=== PATIENT | female | born 1990 | race African-American/Black ===

== ENCOUNTER 2016-03-07 16:12 | Emergency (ER) | payer OTHER ==
[2016-03-07 18:28] LABS: MEAN CORPUSCULAR HEMOGLOBIN 28.2 pg (27.0-33.0); MEAN CORPUSCULAR HGB CONC 33.1 g/dl (32.0-36.5); MEAN CORPUSCULAR VOLUME 85.1 fl (80.0-96.0); RED CELL DISTRIBUTION WIDTH 12.8 % (11.5-14.5); WHITE BLOOD COUNT 12.8 K/mm3 (4.0-10.0)
[2016-03-07 18:37] LABS: INR 0.93
[2016-03-07 18:49] LABS: ANION GAP 9 MEQ/L (8-16); BLOOD UREA NITROGEN 11 MG/DL (7-18); CALCIUM LEVEL 9.4 MG/DL (8.5-10.1); CARBON DIOXIDE LEVEL 24 MEQ/L (21-32); CHLORIDE LEVEL 106 MEQ/L (98-107); GLOMERULAR FILTRATION RATE > 60.0 (>60); GLUCOSE, FASTING 91 MG/DL (70-105); POTASSIUM SERUM 3.7 MEQ/L (3.5-5.1); SODIUM LEVEL 139 MEQ/L (136-145)
[2016-03-07 18:50] LABS: CONTROL LINE HCG INT CTR LINE PRESENT
--- NOTE | 2016-03-07 20:00 | REPUSA ---
HISTORY: Vaginal bleeding for 3 weeks. TECHNIQUE: Realtime sonographic images were obtained in multiple projections. Transabdominal and tr ansvaginal approach is utilized. FINDINGS: The uterus is anteverted measuring 10.46 x 6.06 x 8.6 cm. Multiple fibroids are seen measuring up to 6 cm. The endometrial echo pattern is WNL, 20.5mm. There is a hypoechoic area seen in the endomet rium canal measuring 1.7 x 1.5 cm which may represent submucosal fibroid versus polyp There is no evidence of free fluid within the pelvic cul-de-sac. The right ovary measures 2.74 x 1.95 x 1.96 cm and the left ovary was not seen. There is no evidence for abnormal vascularity. IMPRESSION: Markedly enlarged fibroid uterus. There is a hypoechoic area seen in the endometrium canal measuring 1.7 x 1.5 cm which may represent s ubmucosal fibroid versus polyp. Consider correlation with Pap smear or endometrial biopsy
[2016-03-07 20:18] LABS: HCG, SERUM QUANTITATIVE 5391 MIU/ML
--- NOTE | 2016-03-07 21:08 | EDDOCDS ---
Physician Documentation [facility] Name: Tuyet Oliver Age: 25 yrs Sex: Female : 1990 Arrival Date: 03/07/2016 Time: 16:12 Bed TR8 Private MD: [place] [facility] [place]: 03/07/16 20:52 Discharged to Home/Self Care. Impression: related conditions, unspecified, Threatened . - Condition is Stable. - Discharge Instructions: Threatened Miscarriage, Pelvic Rest. - Prescriptions for Zofran 4 mg Oral Tablet - take 1 tablet by ORAL route 4 times per day As needed; 10 tablet. - Medication Reconciliation, Local Pharmacy Hours form. - Follow up: Lisa Richardson, OB; When: 2 - 3 days; Reason: Recheck today's complaints, Continuance of care. - Problem is an ongoing problem. - Symptoms are unchanged. - Notes: repeat hcg in 2 days Historical: - Allergies: no known allergies; - Home Meds: 1. BCP's daily (Last dose: 03/06/2016) 2. trazodone 50 mg oral tab 1 tab night (Last dose: 03/06/2016 22:00) 3. Effexor XR 150 mg Oral cp24 1 cap once daily (Last dose: 03/06/2016 08:00) 4. ibuprofen 400 mg Oral tab 1 tab (Last dose: 03/07/2016 15:00) - PMHx: Depression; - PSHx: none; - Social history: Smoking status: Patient states was never smoker of tobacco. Patient/guardian denies using alcohol, street drugs, No barriers to communication noted, The patient speaks fluent German, Speaks appropriately for age. - Family history: Not pertinent. - : The pt / caregiver states he / she is not on anticoagulants. Home medication list is obtained from the patient. - Exposure Risk Screening:: None identified. 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 3 in. (160.02 cm); Pain 9/10; 20:57 BP 115 / 70 RA Sitting (auto/reg); Pulse 106; Resp 18; Temp 99.0(O); Pulse Ox 98% on rs6 R/A; Pain 7/10; 16:14 Body Mass Index 29.23 (74.84 kg, 160.02 cm) cmb MDM: 18:01 Financial registration complete. gjb 18:02 [facility] Payment Agreement was scanned into [employer] and attached to record. gjb 18:11 CBC Ordered. EDMS 18:11 BMP Ordered. EDMS 18:11 PT/INR Ordered. EDMS 18:11 HCG,Serum Qualitative Ordered. EDMS 18:23 -US Pelvic Non-Ob Complete Ordered. EDMS 18:24 DUPLEX SCAN LIMITED (DOPPLER)+US Ordered. EDMS 18:29 Transvaginal NON- US Ordered. EDMS 19:46 HCG, SERUM QUANTITATIVE Ordered. EDMS 19:48 CBC Reviewed. ke 19:48 HCG,Serum Qualitative Reviewed. ke 19:48 BMP Reviewed. ke 19:48 PT/INR Reviewed. ke 19:54 HCG, SERUM QUANTITATIVE Reviewed. ke 20:19 HCG,Serum Qualitative Reviewed. ke 20:19 BMP Reviewed. ke 20:19 HCG, SERUM QUANTITATIVE Reviewed. ke 20:43 Type & Screen Ordered. EDMS Signatures: Dispatcher [employer] EDMS Clarence Reyes, FIELD CANE SCALER Pilar SnowRN RN Batsheva Bryant RN RN Yolette Muñoz The chart was reviewed and I authenticate all verbal orders and agree with the evaluation and treatment provided.Corrections: (The following items were deleted from the chart) 19:46 19:40 HCG, SERUM QUANTITATIVE+LAB ordered. EDMS EDMS Attachments: 18:02 [facility] Payment Agreement gjb MTDD
--- NOTE | 2016-03-07 21:08 | EDDOCDS ---
Nurse's Notes [facility] Name: Tuyet Oliver Age: 25 yrs Sex: Female : 1990 Arrival Date: 03/07/2016 Time: 16:12 Bed TR8 Private MD: FRANCES Caballero Diagnosis: related conditions, unspecified;Threatened Presentation: 03/07 16:40 Presenting complaint: Patient states: bleeding and clotting x10 hours. Lower abd pain. ttb Pt concerned because "clots are the size of my fist". Denies dizziness, lightheadedness, n/v/d. Denies . Currently under care of PCP for ongoing vag bleeding x3 weeks. PCP started pt on BCP's Saturday. Risk factors: The patient reports no loss of conciousness prior to arrival. This patient has not had a hysterectomy. This patient has not begun menopause. Adult Sepsis Screening: The patient does not have new or worsening altered mentation. Patient's respiratory rate is less than 22. Systolic blood pressure is greater than 100. Patient has a qSOFA score of 0- Negative Sepsis Screen. Suicide/Homicide risk assessment- the patient denies having any suicidal and/or homicidal ideations and does not present with any other emotional, behavioral or mental health complaints. Status: The patient is a dependent. Transition of care: patient was not received from another setting of care. 16:40 Acuity: WILD Level 3 ttb 16:40 Method Of Arrival: Walkin/Carried/Asstd ttb Triage Assessment: 16:43 General: Appears in no apparent distress, well nourished, well groomed, Behavior is ttb appropriate for age, cooperative, pleasant. Pain: Location: pelvic/lower abd 9/10 Quality of pain is described as sharp. HIV screening NA for this visit Offered previously. Neurological: Level of Consciousness is awake, alert. Cardiovascular: Chest pain is denied. Respiratory: No deficits noted. Airway is patent Respiratory effort is even, Respiratory pattern is regular, symmetrical, Denies cough, shortness of breath. GI: Denies nausea, vomiting, pain. : Reports pain in suprapubic area vaginal bleeding that is bright red with clots heavy flow Denies burning with urination, urinary frequency, urgency. Derm: Skin is normal. 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 BCP's daily (Last dose: 03/06/2016) 2. trazodone 50 mg oral tab 1 tab night (Last dose: 03/06/2016 22:00) 3. Effexor XR 150 mg Oral cp24 1 cap once daily (Last dose: 03/06/2016 08:00) 4. ibuprofen 400 mg Oral tab 1 tab (Last dose: 03/07/2016 15:00) - PMHx: Depression; - PSHx: none; - Social history: Smoking status: Patient states was never smoker of tobacco. Patient/guardian denies using alcohol, street drugs, No barriers to communication noted, The patient speaks fluent Sierra Leonean, Speaks appropriately for age. - Family history: Not pertinent. - : The pt / caregiver states he / she is not on anticoagulants. Home medication list is obtained from the patient. - Exposure Risk Screening:: None identified. Screenin:05 Screening information is obtained from the patient. Fall risk: No risks identified. [facility] Assistance ADL's: requires no assistance with activities of daily living. Abuse/DV Screen: The patient / caregiver reports he/she is: not in a situation that causes fear, pain or injury. Nutritional screening: No deficits noted. Advance Directives: There is no active DNR order. home support is adequate. Assessment: 21:05 General: Appears in no apparent distress, comfortable, Behavior is appropriate for age, [facility] cooperative, first contact with patient to review discharge instructions, patient denies new problems or complaints, encouraged and answered questions, declines offer of further assistance with discharge. Vital Signs: 16:14 BP 117 / 73; Pulse 112; Resp 16; Temp 99.1(O); Pulse Ox 98% ; Weight 74.84 kg; Height 5 cmb ft. 3 in. (160.02 cm); Pain 9/10; 20:57 BP 115 / 70 RA Sitting (auto/reg); Pulse 106; Resp 18; Temp 99.0(O); Pulse Ox 98% on rs6 R/A; Pain 7/10; 16:14 Body Mass Index 29.23 (74.84 kg, 160.02 cm) cmb Vitals: 16:14 Log In Time: March 07, 2016 at 16:12. b ED Course: 16:13 Patient visited by Kenya Vasquez. cmb 16:13 Patient moved to Waiting cmb 16:14 Ada [facility] [place] Private Physician. cmb 16:15 Patient moved to Pre RCE cmb 16:42 Triage Initiated ttb 16:45 Patient visited by Batsheva Oleary RN. ttb 17:26 Patient moved to Triage 3 mlb1 17:45 [facility]. ke 17:45 Patient visited by Clarence Reyes FNP. ke 17:45 Patient visited by Clarence Reyes FNP. ke 18:02 [facility] Payment Agreement was scanned into [employer] and attached to record. gjb 18:14 Patient visited by Clarence Reyes FNP. ke 18:16 HCG,Serum Qualitative Sent. rs6 18:16 PT/INR Sent. rs6 18:16 BMP Sent. rs6 18:16 CBC Sent. rs6 18:18 Patient moved to TR3 rs6 18:59 Patient visited by Clarence Reyes FNP. ke 19:28 Patient visited by Clarence Reyes FNP. ke 19:50 Patient visited by Clarence Reyes FNP. ke 20:18 Patient visited by Clarence Reyes FNP. ke 20:25 Patient moved to PD2 / 27 rs6 20:25 -US Pelvic Non-Ob Complete Returned. EDMS 20:45 Patient visited by Clarence Reyes FNP. ke 20:51 [place], OB is Referral Physician. ke 20:51 Type & Screen Sent. rs6 20:58 Patient visited by Marisabel Dee PCA. rs6 20:59 Patient moved to TR8 rs6 21:05 The patient / caregiver is instructed regarding the plan of care and ED course. [facility] 21:05 No IV's were initiated during this patient's visit. No procedures done that require [facility] assistance. Order Results: Lab Order: CBC; SPEC'M 03/07/16 18:15 Test: WHITE BLOOD COUNT; Value: 12.8; Range: 4.0-10.0; Abnormal: Above high normal; Units: K/mm3; Status: F Test: RED BLOOD COUNT; Value: 3.86; Range: 4.00-5.40; Abnormal: Below low normal; Units: M/mm3; Status: F Test: HEMOGLOBIN; Value: 10.9; Range: 12.0-16.0; Abnormal: Below low normal; Units: g/dl; Status: F Test: HEMATOCRIT; Value: 32.9; Range: 36.0-47.0; Abnormal: Below low normal; Units: %; Status: F Test: MEAN CORPUSCULAR VOLUME; Value: 85.1; Range: 80.0-96.0; Units: fl; Status: F Test: MEAN CORPUSCULAR HEMOGLOBIN; Value: 28.2; Range: 27.0-33.0; Units: pg; Status: F Test: MEAN CORPUSCULAR HGB CONC; Value: 33.1; Range: 32.0-36.5; Units: g/dl; Status: F Test: RED CELL DISTRIBUTION WIDTH; Value: 12.8; Range: 11.5-14.5; Units: %; Status: F Test: PLATELET COUNT, AUTOMATED; Value: 392; Range: 150-450; Units: k/mm3; Status: F Lab Order: [facility]; SPEC'M 03/07/16 18:15 Test: GLUCOSE, FASTING; Value: 91; Range: 70-105; Units: MG/DL; Status: F Test: BLOOD UREA NITROGEN; Value: 11; Range: 7-18; Units: MG/DL; Status: F Test: CREATININE FOR GFR; Value: 0.60; Range: 0.55-1.02; Units: MG/DL; Status: F Test: GLOMERULAR FILTRATION RATE; Value: > 60.0; Range: >60; Status: F Test: SODIUM LEVEL; Value: 139; Range: 136-145; Units: MEQ/L; Status: F Test: POTASSIUM SERUM; Value: 3.7; Range: 3.5-5.1; Units: MEQ/L; Status: F Test: CHLORIDE LEVEL; Value: 106; Range: 98-107; Units: MEQ/L; Status: F Test: CARBON DIOXIDE LEVEL; Value: 24; Range: 21-32; Units: MEQ/L; Status: F Test: ANION GAP; Value: 9; Range: 8-16; Units: MEQ/L; Status: F Test: CALCIUM LEVEL; Value: 9.4; Range: 8.5-10.1; Units: MG/DL; Status: F Test Note: ; Units are mL/min/1.73 m2 Chronic Kidney Disease Staging per NKF: Stage I & II GFR >=60 Normal to Mildly Decreased Stage III GFR 30-59 Moderately Decreased Stage IV GFR 15-29 Severely Decreased Stage V GFR <15 Very Little GFR Left ESRD GFR <15 on RHYTHMIC GYMNASTICS COACH Lab Order: PT/INR; [facility] 03/07/16 18:15 Test: PROTHROMBIN TIME; Value: 12.6; Range: 12.3-14.5; Units: SECONDS; Status: F Test: INR; Value: 0.93; Status: F Test Note: ; THERAPUTIC HUMAN INR VALUES INDICATIONS NORMAL RANGES PROPHYLAXIS/TREATMENT OF: VENOUS THROMBOSIS 2.0-3.0 PULMONARY EMBOLISM 2.0-3.0 PREVENTION OF SYSTEMIC EMBOLISM FROM: TISSUE HEART VALVES 2.0-3.0 ACUTE MYOCARDIAL INFARCTION 2.0-3.0 VALVULAR HEART DISEASE 2.0-3.0 ATRIAL FIBRILLATION 2.0-3.0 MECHANICAL VALVES(HIGH RISK) 2.5-3.5 RECURRENT MYOCARDIAL INFARCTION 2.5-3.5 Lab Order: HCG,Serum Qualitative; [facility] 03/07/16 18:15 Test: HCG, SERUM QUALITATIVE; Value: POSITIVE; Range: NEGATIVE; Abnormal: Abnormal; Status: F Lab Order: HCG, SERUM QUANTITATIVE; [facility] 03/07/16 18:15 Test: HCG, SERUM QUANTITATIVE; Value: 5391; Units: MIU/ML; Status: F Test Note: ; GESTATIONAL AGE APPROXIMATE HCG RANGE (MIU/ML) 0.2-1 WEEK 5-50 1-2 WEEKS 50-500 2-3 WEEKS 100-5,000 3-4 WEEKS 500-10,000 4-5 WEEKS 1,000-50,000 5-6 WEEKS 10,000-100,000 6-8 WEEKS 15,000-200,000 2-3 MONTHS 10,000-100,000 NON FEMALES LESS THAN 3.0 Patient samples may contain human heterophilic antibodies that could react with immunoassays to give falsely elevated or depressed results. This assay has been designed to minimize interference from heterophilic antibodies. Elevated hCG levels have also been associated with trophoblastic disease and nontrophoblastic neoplasms. The possibility of having these diseases should be considered before a diagnosis of is made. This test is not intended for use as a surrogate marker for aiding in the diagnosis or monitoring the treatment of cancer patients. Siemens i-Human Patients methodology. Radiology Order: -US Pelvic Non-Ob Complete Test: -US Pelvic Non-Ob Complete REASON FOR EXAMINATION: Vaginal Bleeding - Nn-; ; HISTORY: Vaginal bleeding for 3 weeks.; ; TECHNIQUE: Realtime sonographic images were obtained in multiple projections. Transabdominal and tr; ansvaginal approach is utilized.; ; FINDINGS:; The uterus is anteverted measuring 10.46 x 6.06 x 8.6 cm. Multiple fibroids are seen measuring up to; 6 cm. The endometrial echo pattern is WNL, 20.5mm. There is a hypoechoic area seen in the endomet; rium canal measuring 1.7 x 1.5 cm which may represent submucosal fibroid versus polyp; ; There is no evidence of free fluid within the pelvic cul-de-sac.; ; The right ovary measures 2.74 x 1.95 x 1.96 cm and the left ovary was not seen.; ; There is no evidence for abnormal vascularity.; ; IMPRESSION:; Markedly enlarged fibroid uterus.; There is a hypoechoic area seen in the endometrium canal measuring 1.7 x 1.5 cm which may represent s; ubmucosal fibroid versus polyp. Consider correlation with Pap smear or endometrial biopsy; ; ; ; ; Outcome: 20:52 Discharge ordered by Provider. kirsten 21:05 Discharge Assessment: Patient awake, alert and oriented x 3. No cognitive and/or [facility] functional deficits noted. Patient verbalized understanding of disposition instructions. patient administered narcotics - no. The following High Risk Discharge criteria are identified: None. Discharged to home ambulatory. Condition: good Condition: stable. Discharge instructions given to patient, Instructed on discharge instructions, follow up and referral plans. medication usage, Demonstrated understanding of instructions, medications, Pt was receptive of discharge instructions/ teaching. Prescriptions given X 1. Ultrasound Study completed. Property :Personal belongings accompany Pt. 21:07 Patient left the ED. [facility] Signatures: Dispatcher [employer] EDMS Clarence Reyes, BOXING PROMOTER BOXING PROMOTER Romero Gonzales, RN RN mlb1 Pilar Montano,RN RN Kenya Kwok Teresa, RN RN ttMarisabel Rutherford, JOSESITO YARD LABORER rs6 Yolette Andino MTDD
--- NOTE | 2016-03-09 22:08 | EDDOCDS ---
Physician Documentation [facility] Name: Tuyet Oliver Age: 25 yrs Sex: Female : 1990 Arrival Date: 03/07/2016 Time: 16:12 Bed TR8 Private MD: Ada [facility] [place] Disposition: 03/07/16 20:52 Discharged to Home/Self Care. Impression: related conditions, unspecified, Threatened . - Condition is Stable. - Discharge Instructions: Threatened Miscarriage, Pelvic Rest. - Prescriptions for Zofran 4 mg Oral Tablet - take 1 tablet by ORAL route 4 times per day As needed; 10 tablet. - Medication Reconciliation, Local Pharmacy Hours form. - Follow up: Lisa Richardson, OB; When: 2 - 3 days; Reason: Recheck today's complaints, Continuance of care. - Problem is an ongoing problem. - Symptoms are unchanged. - Notes: repeat hcg in 2 days Historical: - Allergies: no known allergies; - Home Meds: 1. BCP's daily (Last dose: 03/06/2016) 2. trazodone 50 mg oral tab 1 tab night (Last dose: 03/06/2016 22:00) 3. Effexor XR 150 mg Oral cp24 1 cap once daily (Last dose: 03/06/2016 08:00) 4. ibuprofen 400 mg Oral tab 1 tab (Last dose: 03/07/2016 15:00) - PMHx: Depression; - PSHx: none; - Social history: Smoking status: Patient states was never smoker of tobacco. Patient/guardian denies using alcohol, street drugs, No barriers to communication noted, The patient speaks fluent Wolof, Speaks appropriately for age. - Family history: Not pertinent. - : The pt / caregiver states he / she is not on anticoagulants. Home medication list is obtained from the patient. - Exposure Risk Screening:: None identified. 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 3 in. (160.02 cm); Pain 9/10; 20:57 BP 115 / 70 RA Sitting (auto/reg); Pulse 106; Resp 18; Temp 99.0(O); Pulse Ox 98% on rs6 R/A; Pain 7/10; 16:14 Body Mass Index 29.23 (74.84 kg, 160.02 cm) cmb MDM: 18:01 Financial registration complete. gjb 18:02 [facility] Payment Agreement was scanned into [employer] and attached to record. gjb 18:11 CBC Ordered. EDMS 18:11 BMP Ordered. EDMS 18:11 PT/INR Ordered. EDMS 18:11 HCG,Serum Qualitative Ordered. EDMS 18:23 -US Pelvic Non-Ob Complete Ordered. EDMS 18:24 DUPLEX SCAN LIMITED (DOPPLER)+US Ordered. EDMS 18:29 Transvaginal NON- US Ordered. EDMS 19:46 HCG, SERUM QUANTITATIVE Ordered. EDMS 19:48 CBC Reviewed. ke 19:48 HCG,Serum Qualitative Reviewed. ke 19:48 BMP Reviewed. ke 19:48 PT/INR Reviewed. ke 19:54 HCG, SERUM QUANTITATIVE Reviewed. ke 20:19 HCG,Serum Qualitative Reviewed. ke 20:19 BMP Reviewed. ke 20:19 HCG, SERUM QUANTITATIVE Reviewed. ke 20:43 Type & Screen Ordered. EDMS 03/08 09:12 T-Sheet-- Draft Copy was scanned into [employer] and attached to record. gb 09:12 Radiology Report was scanned into [employer] and attached to record. gb 13:05 ED course: ft drum ob faxed formal report of pelvic us for fu mlg. ml Signatures: Dispatcher [employer] EDWA Adali Schuler MD MD ml Barnhardt, Gloria, Reg Reg Clarence Reyes, ONLINE CONTENT EDITOR ONLINE CONTENT EDITOR Pilar HusainRN RN Batsheva Bryant RN RN Yolette uMñoz The chart was reviewed and I authenticate all verbal orders and agree with the evaluation and treatment provided.Corrections: (The following items were deleted from the chart) 03/07 19:46 19:40 HCG, SERUM QUANTITATIVE+LAB ordered. EDWA EDMS Attachments: 18:02 [facility] Payment Agreement gjb 03/08 09:12 T-Sheet-- Draft Copy gb Chart Complete MTDD
--- NOTE | 2016-03-09 22:08 | EDDOCDS ---
Physician Documentation [facility] Name: Tuyet Oliver Age: 25 yrs Sex: Female : 1990 Arrival Date: 03/07/2016 Time: 16:12 Bed TR8 Private MD: [place] [facility] [place]: 03/07/16 20:52 Discharged to Home/Self Care. Impression: related conditions, unspecified, Threatened . - Condition is Stable. - Discharge Instructions: Threatened Miscarriage, Pelvic Rest. - Prescriptions for Zofran 4 mg Oral Tablet - take 1 tablet by ORAL route 4 times per day As needed; 10 tablet. - Medication Reconciliation, Local Pharmacy Hours form. - Follow up: Lisa Richardson, OB; When: 2 - 3 days; Reason: Recheck today's complaints, Continuance of care. - Problem is an ongoing problem. - Symptoms are unchanged. - Notes: repeat hcg in 2 days Historical: - Allergies: no known allergies; - Home Meds: 1. BCP's daily (Last dose: 03/06/2016) 2. trazodone 50 mg oral tab 1 tab night (Last dose: 03/06/2016 22:00) 3. Effexor XR 150 mg Oral cp24 1 cap once daily (Last dose: 03/06/2016 08:00) 4. ibuprofen 400 mg Oral tab 1 tab (Last dose: 03/07/2016 15:00) - PMHx: Depression; - PSHx: none; - Social history: Smoking status: Patient states was never smoker of tobacco. Patient/guardian denies using alcohol, street drugs, No barriers to communication noted, The patient speaks fluent Khmer, Speaks appropriately for age. - Family history: Not pertinent. - : The pt / caregiver states he / she is not on anticoagulants. Home medication list is obtained from the patient. - Exposure Risk Screening:: None identified. 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 3 in. (160.02 cm); Pain 9/10; 20:57 BP 115 / 70 RA Sitting (auto/reg); Pulse 106; Resp 18; Temp 99.0(O); Pulse Ox 98% on rs6 R/A; Pain 7/10; 16:14 Body Mass Index 29.23 (74.84 kg, 160.02 cm) cmb MDM: 18:01 Financial registration complete. gjb 18:02 [facility] Payment Agreement was scanned into [employer] and attached to record. gjb 18:11 CBC Ordered. EDMS 18:11 BMP Ordered. EDMS 18:11 PT/INR Ordered. EDMS 18:11 HCG,Serum Qualitative Ordered. EDMS 18:23 -US Pelvic Non-Ob Complete Ordered. EDMS 18:24 DUPLEX SCAN LIMITED (DOPPLER)+US Ordered. EDMS 18:29 Transvaginal NON- US Ordered. EDMS 19:46 HCG, SERUM QUANTITATIVE Ordered. EDMS 19:48 CBC Reviewed. ke 19:48 HCG,Serum Qualitative Reviewed. ke 19:48 BMP Reviewed. ke 19:48 PT/INR Reviewed. ke 19:54 HCG, SERUM QUANTITATIVE Reviewed. ke 20:19 HCG,Serum Qualitative Reviewed. ke 20:19 BMP Reviewed. ke 20:19 HCG, SERUM QUANTITATIVE Reviewed. ke 20:43 Type & Screen Ordered. EDMS 03/08 09:12 T-Sheet-- Draft Copy was scanned into [employer] and attached to record. gb 09:12 Radiology Report was scanned into [employer] and attached to record. gb 13:05 ED course: ft drum ob faxed formal report of pelvic us for fu mlg. ml Signatures: Dispatcher [employer] EDNM Adali Schuler MD MD ml Barnhardt, Gloria, Reg Reg Clarence eRyes, CONSIGNEE CONSIGNEE Pilar HusainRN RN Batsheva Bryant RN RN Yolette Muñoz The chart was reviewed and I authenticate all verbal orders and agree with the evaluation and treatment provided.Corrections: (The following items were deleted from the chart) 03/07 19:46 19:40 HCG, SERUM QUANTITATIVE+LAB ordered. EDNM EDMS Attachments: 18:02 [facility] Payment Agreement gjb 03/08 09:12 T-Sheet-- Draft Copy gb Chart Complete MTDD
--- NOTE | 2016-03-09 22:09 | EDDOCDS ---
Nurse's Notes [facility] Name: Tuyet Oliver Age: 25 yrs Sex: Female : 1990 Arrival Date: 03/07/2016 Time: 16:12 Bed TR8 Private MD: FRANCES Caballero Diagnosis: related conditions, unspecified;Threatened Presentation: 03/07 16:40 Presenting complaint: Patient states: bleeding and clotting x10 hours. Lower abd pain. ttb Pt concerned because "clots are the size of my fist". Denies dizziness, lightheadedness, n/v/d. Denies . Currently under care of PCP for ongoing vag bleeding x3 weeks. PCP started pt on BCP's Saturday. Risk factors: The patient reports no loss of conciousness prior to arrival. This patient has not had a hysterectomy. This patient has not begun menopause. Adult Sepsis Screening: The patient does not have new or worsening altered mentation. Patient's respiratory rate is less than 22. Systolic blood pressure is greater than 100. Patient has a qSOFA score of 0- Negative Sepsis Screen. Suicide/Homicide risk assessment- the patient denies having any suicidal and/or homicidal ideations and does not present with any other emotional, behavioral or mental health complaints. Status: The patient is a dependent. Transition of care: patient was not received from another setting of care. 16:40 Acuity: WILD Level 3 ttb 16:40 Method Of Arrival: Walkin/Carried/Asstd ttb Triage Assessment: 16:43 General: Appears in no apparent distress, well nourished, well groomed, Behavior is ttb appropriate for age, cooperative, pleasant. Pain: Location: pelvic/lower abd 9/10 Quality of pain is described as sharp. HIV screening NA for this visit Offered previously. Neurological: Level of Consciousness is awake, alert. Cardiovascular: Chest pain is denied. Respiratory: No deficits noted. Airway is patent Respiratory effort is even, Respiratory pattern is regular, symmetrical, Denies cough, shortness of breath. GI: Denies nausea, vomiting, pain. : Reports pain in suprapubic area vaginal bleeding that is bright red with clots heavy flow Denies burning with urination, urinary frequency, urgency. Derm: Skin is normal. 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 BCP's daily (Last dose: 03/06/2016) 2. trazodone 50 mg oral tab 1 tab night (Last dose: 03/06/2016 22:00) 3. Effexor XR 150 mg Oral cp24 1 cap once daily (Last dose: 03/06/2016 08:00) 4. ibuprofen 400 mg Oral tab 1 tab (Last dose: 03/07/2016 15:00) - PMHx: Depression; - PSHx: none; - Social history: Smoking status: Patient states was never smoker of tobacco. Patient/guardian denies using alcohol, street drugs, No barriers to communication noted, The patient speaks fluent Cuban, Speaks appropriately for age. - Family history: Not pertinent. - : The pt / caregiver states he / she is not on anticoagulants. Home medication list is obtained from the patient. - Exposure Risk Screening:: None identified. Screenin:05 Screening information is obtained from the patient. Fall risk: No risks identified. [facility] Assistance ADL's: requires no assistance with activities of daily living. Abuse/DV Screen: The patient / caregiver reports he/she is: not in a situation that causes fear, pain or injury. Nutritional screening: No deficits noted. Advance Directives: There is no active DNR order. home support is adequate. Assessment: 21:05 General: Appears in no apparent distress, comfortable, Behavior is appropriate for age, [facility] cooperative, first contact with patient to review discharge instructions, patient denies new problems or complaints, encouraged and answered questions, declines offer of further assistance with discharge. Vital Signs: 16:14 BP 117 / 73; Pulse 112; Resp 16; Temp 99.1(O); Pulse Ox 98% ; Weight 74.84 kg; Height 5 cmb ft. 3 in. (160.02 cm); Pain 9/10; 20:57 BP 115 / 70 RA Sitting (auto/reg); Pulse 106; Resp 18; Temp 99.0(O); Pulse Ox 98% on rs6 R/A; Pain 7/10; 16:14 Body Mass Index 29.23 (74.84 kg, 160.02 cm) cmb Vitals: 16:14 Log In Time: March 07, 2016 at 16:12. b ED Course: 16:13 Patient visited by Kenya Vasquez. cmb 16:13 Patient moved to Waiting cmb 16:14 Ada [facility] is Private Physician. cmb 16:15 Patient moved to Pre RCE cmb 16:42 Triage Initiated ttb 16:45 Patient visited by Batsheva Oleary RN. ttb 17:26 Patient moved to Triage 3 mlb1 17:45 [facility] ke 17:45 Patient visited by Clarence Reyes FNP. ke 17:45 Patient visited by Clarence Reyes FNP. ke 18:02 [facility] Payment Agreement was scanned into [employer] and attached to record. gjb 18:14 Patient visited by Clarence Reyes FNP. ke 18:16 HCG,Serum Qualitative Sent. rs6 18:16 PT/INR Sent. rs6 18:16 BMP Sent. rs6 18:16 CBC Sent. rs6 18:18 Patient moved to TR3 rs6 18:59 Patient visited by Clarence Reyes FNP. ke 19:28 Patient visited by Clarence Reyes FNP. ke 19:50 Patient visited by Clarence Reyes FNP. ke 20:18 Patient visited by Clarence Reyes FNP. ke 20:25 Patient moved to PD2 / 27 rs6 20:25 -US Pelvic Non-Ob Complete Returned. EDMS 20:45 Patient visited by Clarence Reyes FNP. ke 20:51 Sheridan, OB is Referral Physician. ke 20:51 Type & Screen Sent. rs6 20:58 Patient visited by Marisabel Dee PCA. rs6 20:59 Patient moved to TR8 rs6 21:05 The patient / caregiver is instructed regarding the plan of care and ED course. [facility] 21:05 No IV's were initiated during this patient's visit. No procedures done that require [facility] assistance. 03/08 09:12 T-Sheet-- Draft Copy was scanned into [employer] and attached to record. gb 09:12 Radiology Report was scanned into [employer] and attached to record. gb Order Results: Lab Order: CBC; SPEC'M 03/07/16 18:15 Test: WHITE BLOOD COUNT; Value: 12.8; Range: 4.0-10.0; Abnormal: Above high normal; Units: K/mm3; Status: F Test: RED BLOOD COUNT; Value: 3.86; Range: 4.00-5.40; Abnormal: Below low normal; Units: M/mm3; Status: F Test: HEMOGLOBIN; Value: 10.9; Range: 12.0-16.0; Abnormal: Below low normal; Units: g/dl; Status: F Test: HEMATOCRIT; Value: 32.9; Range: 36.0-47.0; Abnormal: Below low normal; Units: %; Status: F Test: MEAN CORPUSCULAR VOLUME; Value: 85.1; Range: 80.0-96.0; Units: fl; Status: F Test: MEAN CORPUSCULAR HEMOGLOBIN; Value: 28.2; Range: 27.0-33.0; Units: pg; Status: F Test: MEAN CORPUSCULAR HGB CONC; Value: 33.1; Range: 32.0-36.5; Units: g/dl; Status: F Test: RED CELL DISTRIBUTION WIDTH; Value: 12.8; Range: 11.5-14.5; Units: %; Status: F Test: PLATELET COUNT, AUTOMATED; Value: 392; Range: 150-450; Units: k/mm3; Status: F Lab Order: [facility]; SPEC'M 03/07/16 18:15 Test: GLUCOSE, FASTING; Value: 91; Range: 70-105; Units: MG/DL; Status: F Test: BLOOD UREA NITROGEN; Value: 11; Range: 7-18; Units: MG/DL; Status: F Test: CREATININE FOR GFR; Value: 0.60; Range: 0.55-1.02; Units: MG/DL; Status: F Test: GLOMERULAR FILTRATION RATE; Value: > 60.0; Range: >60; Status: F Test: SODIUM LEVEL; Value: 139; Range: 136-145; Units: MEQ/L; Status: F Test: POTASSIUM SERUM; Value: 3.7; Range: 3.5-5.1; Units: MEQ/L; Status: F Test: CHLORIDE LEVEL; Value: 106; Range: 98-107; Units: MEQ/L; Status: F Test: CARBON DIOXIDE LEVEL; Value: 24; Range: 21-32; Units: MEQ/L; Status: F Test: ANION GAP; Value: 9; Range: 8-16; Units: MEQ/L; Status: F Test: CALCIUM LEVEL; Value: 9.4; Range: 8.5-10.1; Units: MG/DL; Status: F Test Note: ; Units are mL/min/1.73 m2 Chronic Kidney Disease Staging per NKF: Stage I & II GFR >=60 Normal to Mildly Decreased Stage III GFR 30-59 Moderately Decreased Stage IV GFR 15-29 Severely Decreased Stage V GFR <15 Very Little GFR Left ESRD GFR <15 on HAZARDOUS SUBSTANCES ENGINEER Lab Order: PT/INR; SPEC'M 03/07/16 18:15 Test: PROTHROMBIN TIME; Value: 12.6; Range: 12.3-14.5; Units: SECONDS; Status: F Test: INR; Value: 0.93; Status: F Test Note: ; THERAPUTIC HUMAN INR VALUES INDICATIONS NORMAL RANGES PROPHYLAXIS/TREATMENT OF: VENOUS THROMBOSIS 2.0-3.0 PULMONARY EMBOLISM 2.0-3.0 PREVENTION OF SYSTEMIC EMBOLISM FROM: TISSUE HEART VALVES 2.0-3.0 ACUTE MYOCARDIAL INFARCTION 2.0-3.0 VALVULAR HEART DISEASE 2.0-3.0 ATRIAL FIBRILLATION 2.0-3.0 MECHANICAL VALVES(HIGH RISK) 2.5-3.5 RECURRENT MYOCARDIAL INFARCTION 2.5-3.5 Lab Order: HCG,Serum Qualitative; SPEC'03/07/16 18:15 Test: HCG, SERUM QUALITATIVE; Value: POSITIVE; Range: NEGATIVE; Abnormal: Abnormal; Status: F Lab Order: HCG, SERUM QUANTITATIVE; SPEC' 03/07/16 18:15 Test: HCG, SERUM QUANTITATIVE; Value: 5391; Units: MIU/ML; Status: F Test Note: ; GESTATIONAL AGE APPROXIMATE HCG RANGE (MIU/ML) 0.2-1 WEEK 5-50 1-2 WEEKS 50-500 2-3 WEEKS 100-5,000 3-4 WEEKS 500-10,000 4-5 WEEKS 1,000-50,000 5-6 WEEKS 10,000-100,000 6-8 WEEKS 15,000-200,000 2-3 MONTHS 10,000-100,000 NON FEMALES LESS THAN 3.0 Patient samples may contain human heterophilic antibodies that could react with immunoassays to give falsely elevated or depressed results. This assay has been designed to minimize interference from heterophilic antibodies. Elevated hCG levels have also been associated with trophoblastic disease and nontrophoblastic neoplasms. The possibility of having these diseases should be considered before a diagnosis of is made. This test is not intended for use as a surrogate marker for aiding in the diagnosis or monitoring the treatment of cancer patients. Siemens Bauzaar methodology. Lab Order: Type & Screen; SPEC'M 03/07/16 20:52 Test: BLOOD TYPE; Value: O POS; Status: F Test: AB SCREEN (INDIRECT LASHAUN)GEL; Value: NEGATIVE; Status: F Radiology Order: -US Pelvic Non-Ob Complete Test: -US Pelvic Non-Ob Complete REASON FOR EXAMINATION: Vaginal Bleeding - Nn-; ; HISTORY: Vaginal bleeding for 3 weeks.; ; TECHNIQUE: Realtime sonographic images were obtained in multiple projections. Transabdominal and tr; ansvaginal approach is utilized.; ; FINDINGS:; The uterus is anteverted measuring 10.46 x 6.06 x 8.6 cm. Multiple fibroids are seen measuring up to; 6 cm. The endometrial echo pattern is WNL, 20.5mm. There is a hypoechoic area seen in the endomet; rium canal measuring 1.7 x 1.5 cm which may represent submucosal fibroid versus polyp; ; There is no evidence of free fluid within the pelvic cul-de-sac.; ; The right ovary measures 2.74 x 1.95 x 1.96 cm and the left ovary was not seen.; ; There is no evidence for abnormal vascularity.; ; IMPRESSION:; Markedly enlarged fibroid uterus.; There is a hypoechoic area seen in the endometrium canal measuring 1.7 x 1.5 cm which may represent s; ubmucosal fibroid versus polyp. Consider correlation with Pap smear or endometrial biopsy; ; ; ; ; Outcome: 03/07 20:52 Discharge ordered by Provider. kirsten 21:05 Discharge Assessment: Patient awake, alert and oriented x 3. No cognitive and/or cjh functional deficits noted. Patient verbalized understanding of disposition instructions. patient administered narcotics - no. The following High Risk Discharge criteria are identified: None. Discharged to home ambulatory. Condition: good Condition: stable. Discharge instructions given to patient, Instructed on discharge instructions, follow up and referral plans. medication usage, Demonstrated understanding of instructions, medications, Pt was receptive of discharge instructions/ teaching. Prescriptions given X 1. Ultrasound Study completed. Property :Personal belongings accompany Pt. 21:07 Patient left the ED. [facility] Signatures: Dispatcher [employer] EDCT Jessica Alejandro, Clarence Petit, SPEED BELT SANDER SPEED BELT SANDER Romero Gonzales RN RN mlb1 Pilar MontanoRN RN [facility] Kenya Vasquez Teresa RN RN ttb Marisabel Dee, JOSESITO TISSUE INSERTER rs6 Yolette Andino Chart Complete MTDD
== END 2016-03-07 21:07 | disposition home or self-care (01) ==
LOC: M ED 16:12
DX: O20.0 Threatened abortion (principal); O26.851 Spotting complicating pregnancy, first trimester; O99.341 Other mental disorders complicating pregnancy, first trimester; Z79.3 Long term (current) use of hormonal contraceptives; Z79.899 Other long term (current) drug therapy